=== PATIENT | male | born 1980 | race Caucasian/White ===

== ENCOUNTER → 2018-09-25 09:18 | Emergency (ER) | payer OTHER ==
[~2018-09-25 09:18] MED LIST: Aspirin 81 mg CHEW TAB* 81 MG TAB.CHEW PO ONE
[2018-09-25 09:47] LABS: ABS Basophils 0.1 10^3/ul (0-0.2); ABS Eosinophils 0.1 10^3/ul (0-0.6); ABS Lymphocytes 2.7 10^3/ul (1.0-4.8); ABS Neutrophils 7.8 10^3/ul (1.5-7.7); Hematocrit 46 % (42-52); Hemoglobin 15.3 g/dL (14.0-18.0); Lymphocyte % 22.6 %; Mean Corpuscular HGB Conc 34 g/dL (31-36); Mean Corpuscular Hemoglobin 27 pg (27-31); Mean Corpuscular Volume 81 fL (80-94); Mean Platelet Volume 9.5 fL (7.4-10.4); Nucleated Red Blood Cells % 0.1; Platelet Count 203 10^3/uL (150-450); Red Blood Count 5.62 10^6 /uL (4.18-5.48); Red Cell Distribution Width 14 % (10-15); White Blood Count 11.8 10^3/uL (3.5-10.8)
--- NOTE | 2018-09-25 09:52 | ED ---
HPI Chest Pain - HPI Summary HPI Summary: Pt is a 38 y/o M presenting to the ED with a chief complaint of chest pain initially onset 09/23/18. He states it initially felt like a cramping pain q4hrs that eventually came on more frequently. Last night on 09/24/18, he reports it became constant and increased in severity, with associated nausea, lightheadedness, SOB, diaphoresis, chills, and dizziness. He initially thought it was gas pains, so he took gas medication without any positive results. Vitals in room: BP 187/106, HR 80bpm. - History of Current Complaint Chief Complaint: EDChestPainROMI Hx Obtained From: Patient Onset/Duration: Started Days Ago, Still Present Timing: Constant, Lasting Days Initial Severity: Moderate Current Severity: Severe Pain Intensity: 9 Pain Scale Used: 0-10 Numeric Chest Pain Location: Left Anterior Chest Pain Radiates: No Character: Other: - cramping Aggravating Factor(s): Nothing Alleviating Factor(s): Nothing Associated Signs and Symptoms: Positive: Chest Pain, Dizziness, Shortness of Breath, Chills, Lightheadedness, Diaphoresis, Nausea - Risk Factors AMI/ACS Risk Factors: Family History - brother had MD at 40y/o - Allergy/Home Medications Allergies/Adverse Reactions: Allergies Allergy/AdvReac Type Severity Reaction Status Date / Time No Known Allergies Allergy Verified 09/25/18 09:43 PMH/Surg Hx/FS Hx/Imm Hx Previously Healthy: Yes Endocrine/Hematology History: Denies: Hx Diabetes Cardiovascular History: Denies: Hx Hypercholesterolemia, Hx Hypertension, Hx Myocardial Infarction Infectious Disease History: No Infectious Disease History: Denies: Traveled Outside the [place] in Last 30 Days - Family History Known Family History: Positive: Cardiac Disease - brother MD at 40 y/o, Diabetes - Social History Occupation: Employed Full-time - avionics system engineer at [employer] Substance Use: No Substance Use Type: Reports: None Hx Tobacco Use: Yes Smoking Status (MU): Current Some Day Smoker - approx. 2 cigars a month Type: Cigars Have You Smoked in the Last Year: Yes Review of Systems Positive: Chills, Skin Diaphoresis Positive: Chest Pain Positive: Shortness Of Breath Positive: Nausea Neurological: Other - lightheadedness, dizziness All Other Systems Reviewed And Are Negative: Yes Physical Exam - Summary Physical Exam Summary: Appearance: Ill-appearing, severe pain distress, well-nourished, wells up with tears with chest pain when trying to describe it Skin: Warm, color reflects adequate perfusion, dry Head: Normal Head/Face inspection, atraumatic Eyes: Conjunctiva clear ENT: Normal inspection Neck: Supple, no nodes, no JVD Respiratory: Lungs clear, normal breath sounds, no respiratory distress Cardio: RRR, No murmur, pulses normal, brisk capillary refill Abdomen: Soft, nontender Bowel sounds: Present Musculoskeletal: Strength Intact/ROM intact, no calf tenderness, no edema. Psychological: Normal Neuro: Alert, muscle tone normal, no focal deficit Triage Information Reviewed: Yes Vital Signs On Initial Exam: Initial Vitals Temp Pulse Resp BP Pulse Ox 98.5 F 80 24 187/106 98 09/25/18 09:27 09/25/18 09:27 09/25/18 09:27 09/25/18 09:27 09/25/18 09:27 Vital Signs Reviewed: Yes Diagnostics - Vital Signs Vital Signs Temp Pulse Resp BP Pulse Ox 09/25/18 09:27 98.5 F 80 24 187/106 98 - Laboratory Result Diagrams: 09/25/18 09:40 09/25/18 09:40 Lab Statement: Any lab studies that have been ordered have been reviewed, and results considered in the medical decision making process. - Radiology CXR Radiology Interpretation Completed By: Radiologist Summary of Radiographic Findings: No active cardiopulmonary disease is noted. ED physician has reviewed this report. - EKG 0922 Cardiac Rate: NL - 85bpm EKG Rhythm: Sinus Rhythm ST Segment: Non-Specific Ectopy: None Summary of EKG Findings: EKG at 0922 shows NSR at 85bpm with nml AV/IV CT, nml QTc, and nml axis. No acute changes. ED MD has reviewed and interpreted this EKG. Chest Pain Course/Dx - Course Course Of Treatment: Pt is a 38 y/o M presenting to the ED with a chief complaint of chest pain initially onset 09/23/18. He states it initially felt like a cramping pain q4hrs that eventually came on more frequently. Last night on 09/24/18, he reports it became constant and increased in severity, with associated nausea, lightheadedness, SOB, diaphoresis, chills, and dizziness. He initially thought it was gas pains, so he took gas medication without any positive results. The pt's physical exam is normal aside from severe pain distress. EKG at 0922 shows NSR at 85bpm with nml AV/IV CT, nml QTc, and nml axis. No acute changes. ED MD has reviewed and interpreted this EKG. CXR shows : No active cardiopulmonary disease is noted. Pt's first and second troponin are 0.00. The pt will be d/c'ed with dx of chest pain. He is stable and agreeable with this plan. - Diagnoses Provider Diagnoses: Chest pain Discharge - Sign-Out/Discharge Documenting (check all that apply): Patient Departure Patient Received Moderate/Deep Sedation with Procedure: No - Discharge Plan Condition: Stable Disposition: HOME Patient Education Materials: Chest Pain (ED) Referrals: [facility] [Outside] - 2 Days [facility] - Jerel MARRUFO [Z.BUSINESS, APPLICATION, OTHER] - Additional Instructions: Your evaluation today did not show any serious cause of your chest pain. You would follow up with our [facility] for further work up of your chest pain. Return to the ER if you have any new or worsening symptoms. - Attestation Statements Document Initiated by Scribe: Yes Documenting Scribe: Carol Bennett Provider For Whom Temo is Documenting (Include Credential): Dr. Ciera Medrano MD. Scribe Attestation: Carol Ambriz, scribed for Dr. Ciera Medrano MD. on 09/25/18 at 1350. Status of Scribe Document: Ready
[2018-09-25 09:53] LABS: INR 0.97 (0.82-1.09)
[2018-09-25 10:05] LABS: Potassium 4.1 mmol/L (3.5-5.0)
[2018-09-25 10:06] LABS: Albumin 4.4 g/dL (3.2-5.2); Albumin/Globulin Ratio 1.6 (1-3); BUN/Creatinine Ratio 9.6 (8-20); Calcium 9.3 mg/dL (8.6-10.3); EGFR African American 126.8 (>60); EGFR Non-African American 104.8 (>60); Globulin 2.8 g/dL (2-4); Total Bilirubin 0.4 mg/dL (0.2-1.0); Total Protein 7.2 g/dL (6.4-8.9)
[2018-09-25 10:17] LABS: Activated Partial Thrombo Time 40.8 seconds (26.0-38.0)
[2018-09-25 10:24] LABS: CKMB ng/mL 1.8 ng/mL (0.6-6.3)
[2018-09-25 13:29] VITALS: BP 148/98
== END | disposition home or self-care (01) ==
LOC: EDBD → ED 09:18
DX: R07.9 Chest pain, unspecified (principal); F17.290 Nicotine dependence, other tobacco product, uncomplicated
CPT/HCPCS: 36415; 71045; 80053; 82550; 82553; 83735; 83880; 84484; 85025; 85379; 85610; 85730; 93005; 99283; A9270-GY